=== PATIENT | male | born 1985 | race Caucasian/White ===

== ENCOUNTER 2018-06-20 19:04 | Emergency (ER) | payer MEDICAID ==
[~2018-06-20] VITALS: Ht 182.9 cm; Wt 114.0 kg
[~2018-06-20 19:04] MED LIST: ACET-1757 PO; ACET325T14 PO; ARIP15TA3 PO; ATOR40TA PO; BUSP7.5T3 PO; DIAZ1KIT6 PR; DIVA500T17 PO; DIVA500T4 PO; ESOM20CA PO; HYDR-3237 PO; LAMO1000 PO; LAMO100T PO; LAMO100T5 PO; LAMO200T49 PO; LAMO25TB2 PO; LEVE500T53 PO; LORA-446 PO; MIRT15TA4 PO; MIRT7.5T8 PO; NICO-486 TD; PANT40TA3 PO; PHEN100C PO; PROP80CA39 PO; QUET200T PO; RANI300C PO; RISP1TAB3 PO; SERT50TA PO; ZIPR60CA2 PO; ZONEGRAN PO; ZONI100C2 PO
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
--- NOTE | 2018-06-20 19:18 | NUR ---
LEGAL HOLD DOCUMENT LISTS: "INCREASING RACING THOUGHTS, DELUSIONS AND PARANOIA. uNABLE TO CARE FOR SELF CURRENTLY"
[2018-06-20] MEDS ORDERED: KETOROLAC 30 MG/1 ML IVPush ONE (19:30)
[2018-06-20] MEDS ORDERED: KETOROLAC 30 MG/1 ML ONE (19:53)
[2018-06-20] MEDS ORDERED: LORazepam 2 MG/ML, 1ML ONE (19:54)
[2018-06-20 19:55] LABS: BASOPHILS % (AUTO) 0 % (0-1); EOSINOPHILS # (AUTO) 0.13 x10^3/uL (0-0.4); EOSINOPHILS % (AUTO) 1 % (1-7); LYMPHOCYTES # (AUTO) 1.33 x10^3/uL (1-3.4); LYMPHOCYTES % (AUTO) 12 % (22-44); MD NO; MEAN CORPUSCULAR HEMOGLOBIN 30.1 pg (27.5-34.5); MEAN CORPUSCULAR HGB CONC 34.4 g/dL (33.2-36.2); MEAN CORPUSCULAR VOLUME 87.4 fL (81-97); MEAN PLATELET VOLUME 8.1 fL (7.4-10.4); MONOCYTES # (AUTO) 0.59 x10^3/uL (0.2-0.8); MONOCYTES % (AUTO) 5 % (2-9); NEUTROPHILS # (AUTO) 9.37 x10^3/uL (1.8-6.8); NEUTROPHILS % (AUTO) 82 % (42-75); PLATELET COUNT 262 x10^3/uL (130-400); RED BLOOD COUNT 5.45 x10^6/uL (4.38-5.82); RED CELL DISTRIBUTION WIDTH 13.4 % (9.4-14.8)
[2018-06-20] MEDS ORDERED: LORazepam 2 MG/ML, 1ML IVPush ONE (20:00)
[2018-06-20 20:07] LABS: ALANINE AMINOTRANSFERASE 29 U/L (12-78); ALBUMIN 3.7 g/dL (3.4-5.0); ANION GAP 8 mmol/L (5-15); CHLORIDE 104 mmol/L (98-107)
[2018-06-20 20:10] LABS: ALKALINE PHOSPHATASE 130 U/L (45-117); BILIRUBIN,TOTAL 0.4 mg/dL (0.2-1.0); CREATININE 0.94 mg/dL (0.7-1.3); TOTAL PROTEIN 6.7 g/dL (6.4-8.2)
--- NOTE | 2018-06-20 20:25 | NUR ---
URINE SPECIMEN COLLECTED & SENT TO LAB. PT DOZING IN UPRIGHT RT LAT POSITION - EASILY AWAKENED, STARTLES EASILY. SIDE RAILS UP X 2, CALL LIGHT GIVEN TO SPOUSE (WHO'S BS). [facility], IN ROOM. VO DR DUNN: PT TO BE NPO, FOR NOW
[2018-06-20 20:31] LABS: MICROSCOPIC NOT IND
[2018-06-20 20:34] LABS: CULTURE INDICATED? NO
[2018-06-20] MEDS ORDERED: OMNIPAQUE 350 MG/ML, 100ML BOTTLE ONE (20:41)
[2018-06-20] MEDS ORDERED: CHLO100T6 PO (21:03)
[2018-06-20] MEDS ORDERED: DIPH25CA61 PO (21:03)
[2018-06-20] MEDS ORDERED: LITH300T3 PO (21:03)
[2018-06-20] MEDS ORDERED: OLAN15TA9 PO (21:03)
[2018-06-20] MEDS ORDERED: GABA300C10 PO (21:03)
[2018-06-20] MEDS ORDERED: PROP10TA16 PO (21:03)
[2018-06-20] MEDS ORDERED: BISA10SU2 PR (21:03)
[2018-06-20] MEDS ORDERED: IBUP-1221 PO (21:03)
[2018-06-20] MEDS ORDERED: CLON0.1T22 PO (21:03)
[2018-06-20] MEDS ORDERED: HYDR25CA PO (21:03)
[2018-06-20] MEDS ORDERED: NICO-487 TD (21:03)
[2018-06-20] MEDS ORDERED: CLON1TAB11 PO (21:03)
[2018-06-20] MEDS ORDERED: TRAZ50TA66 PO (21:03)
--- NOTE | 2018-06-20 21:52 | NUR ---
PT TO BE DC'D, NEEDS [facility] TRANSPORT BACK TO FACILITY (PER PIERRE). PT SITTING ON END OF BED, QUIETLY TALKING W/ PIERRE, SPOUSE & BROTHER.
[2018-06-20 21:53] VITALS: BP 129/93
--- NOTE | 2018-06-20 22:01 | NUR ---
DC INSTRUCTIONS DISCUSSED W/ PT, SPOUSE AND PIERRE ([facility]); UNDERSTANDING VERBALIZED. PT & PIERRE AWAITING TRANSPORT BACK TO FACILITY.
--- NOTE | 2018-06-20 22:08 | NUR ---
PT DRESSED, WALKING AROUND IN ED ROOM. SPRITE PROVIDED TO PT.
--- NOTE | 2018-06-20 22:11 | NUR ---
PT REPORT TO LIZZY Mckinley RN. PT CARE TRANSFERRED.
--- NOTE | 2018-06-20 22:29 | NUR ---
REPORT CALLED TO [facility]. REPORT GIVEN TO JOSLYN ROJAS AT [facility]
--- NOTE | 2018-06-20 22:45 | NUR ---
PT ACCEPTED BACK TO [facility] BY DR. RINCON. NURSE TO NURSE COMPLETED. [facility] CALLED AWAITING [facility] ETA
--- NOTE | 2018-06-20 23:42 | NUR ---
MAYLIN tx number: [id number]
--- NOTE | 2018-06-21 00:30 | NUR ---
PT LEFT BY [facility].
== END 2018-06-21 00:43 ==
LOC: ED 19:42
DX: K59.00 Constipation, unspecified (principal); K43.9 Ventral hernia without obstruction or gangrene; F20.9 Schizophrenia, unspecified; I10 Essential (primary) hypertension; E78.00 Pure hypercholesterolemia, unspecified; F31.9 Bipolar disorder, unspecified; G40.909 Epilepsy, unspecified, not intractable, without status epilepticus; K21.9 Gastro-esophageal reflux disease without esophagitis; Z90.49 Acquired absence of other specified parts of digestive tract; Z90.89 Acquired absence of other organs
CPT/HCPCS: 36415; 74177; 80053; 81003; 83690; 85025; 96374; 96375; 99285; J1885; J2060; Q9967

== ENCOUNTER 2018-08-06 15:28 | Emergency (ER) | payer MEDICAID ==
[~2018-08-06] VITALS: Ht 182.9 cm; Wt 114.0 kg
[~2018-08-06 15:28] MED LIST changes: +BISA10SU2 PR; +CHLO100T6 PO; +CLON0.1T22 PO; +CLON1TAB11 PO; +DIPH25CA61 PO; +GABA300C10 PO; +HYDR25CA PO; +IBUP-1221 PO; +LITH300T3 PO; +NICO-487 TD; +OLAN15TA9 PO; +PROP10TA16 PO; +TRAZ50TA66 PO
--- NOTE | 2018-08-06 15:51 | NUR ---
i am assuming care of this pt from luan (willian) at this time. sbar report was exchanged at the bedside.
--- NOTE | 2018-08-06 15:52 | NUR ---
PT ON A LEGAL HOLD BY EMS. BELONGINGS ARE LOCKED, ROOM IS SECURED, AND A SITTER IS AT THE DOOR FOR SAFETY/SECURITY.
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
--- NOTE | 2018-08-06 15:59 | NUR ---
TASK RN: PT REPORTS HE IS HERE BECAUSE HE IS HEARING VOICES AND NEEDS MEDICAL CLEARANCE FOR [facility] WHERE HE HAS A BED. PT DENIES SI/HI AND JUST WANTS TO BE MEDICALLY CLEARED FOR ADMISSION. PT RESTING IN SAFE BED AND IN GOWN ONLY. 1 BAG OF BELONGINGS.
[2018-08-06 16:18] LABS: AMPHETAMINE SCREEN, URINE Negative (Negative); BARBITURATE SCREEN, URINE Negative (Negative); BENZODIAZEPINE SCREEN, URINE Negative (Negative); CANNABINOID SCREEN, URINE Positive (Negative); COCAINE SCREEN, URINE Negative (Negative); METHADONE SCREEN, URINE Negative (Negative); OPIATE SCREEN, URINE Negative (Negative)
[2018-08-06 16:41] LABS: BASOPHILS # (AUTO) 0.09 x10^3/uL (0-0.1); BASOPHILS % (AUTO) 1 % (0-1); EOSINOPHILS # (AUTO) 0.29 x10^3/uL (0-0.4); EOSINOPHILS % (AUTO) 4 % (1-7); LYMPHOCYTES # (AUTO) 2.08 x10^3/uL (1-3.4); LYMPHOCYTES % (AUTO) 25 % (22-44); MD NO; MEAN CORPUSCULAR HEMOGLOBIN 29.6 pg (27.5-34.5); MEAN CORPUSCULAR HGB CONC 33.1 g/dL (33.2-36.2); MEAN CORPUSCULAR VOLUME 89.3 fL (81-97); MEAN PLATELET VOLUME 7.8 fL (7.4-10.4); MONOCYTES # (AUTO) 0.53 x10^3/uL (0.2-0.8); MONOCYTES % (AUTO) 6 % (2-9); NEUTROPHILS # (AUTO) 5.31 x10^3/uL (1.8-6.8); NEUTROPHILS % (AUTO) 64 % (42-75); PLATELET COUNT 286 x10^3/uL (130-400); RED BLOOD COUNT 5.18 x10^6/uL (4.38-5.82)
--- NOTE | 2018-08-06 16:48 | NUR ---
PT IS RESTING COMFORTABLY ON AN E.R. GURNEY WHILE AWAITING THE RESULTS OF DIAGNOSTICS. THERE ARE NO ACUTE CHANGES NTED AT THIS TIME, AND I WILL CONTINUE TO MONITOR AND TREAT ORDERED, WELL PRN.
[2018-08-06 16:52] LABS: ANION GAP 6 mmol/L (5-15); CALCIUM 8.7 mg/dL (8.5-10.1); CHLORIDE 108 mmol/L (98-107)
[2018-08-06 16:56] LABS: ACETAMINOPHEN < 2 mcg/mL (10-30); ALBUMIN 3.8 g/dL (3.4-5.0); CREATININE 0.92 mg/dL (0.7-1.3); SALICYLATE LEVEL 4.1 mg/dL (2.8-20.0)
--- NOTE | 2018-08-06 17:51 | NUR ---
[facility] REQUESTED FOR PT NOURISHMENT AND COMFORT.
--- NOTE | 2018-08-06 18:03 | NUR ---
PT IS SLEEPING SONOROUSLY ON AN E.R. GURNEY WHILE AWAITING A ROOM ASSIGNMENT FOR ADMISSION. VS ARE STABLE, AND THERE ARE NO ACUTE CHANGES NOTED AT THIS TIME. I WILL CONTINUE TO MONITOR AND TREAT ORDERED, WELL PRN WHILE AWAITING A ROOM ASSIGNMENT FOR ADMISSION.
--- NOTE | 2018-08-06 18:57 | NUR ---
ESTHER (RN) IS ASSUMING CARE OF THIS PT AT THIS TIME. SBAR REPORT WAS EXCHANGED AT THE BEDSIDE.
--- NOTE | 2018-08-06 19:00 | NUR ---
REPORT RECIEVED FROM CARLY, ASSUMED CARE OF PT. GASOLINE TRUCK CRANE OPERATOR AT , NO DISTRESS NOTED
--- NOTE | 2018-08-06 20:15 | NUR ---
PT AGITATED, WANTING EVENING MEDS, CRYSTAL JARQUIN, DEFUSED SITUATION
--- NOTE | 2018-08-06 21:16 | NUR ---
PT RESTING QUIETLY, NO DISTRESS NOTED
[2018-08-06] MEDS ORDERED: CHLORPROMAZINE 100MG TAB ONE (21:25)
[2018-08-06] MEDS ORDERED: DIPHENHYDRAMINE 50 MG CAPSULE ONE (21:25)
[2018-08-06] MEDS ORDERED: MIRTAZAPINE 15 MG TABLET ONE (21:25)
[2018-08-06] MEDS ORDERED: TRAZODONE 50MG TABLET PO PRN (21:30)
[2018-08-06] MEDS ORDERED: LITHIUM CARBONATE 300 MG CAPSULE PO SCH (21:30)
[2018-08-06] MEDS ORDERED: PROPRANOLOL 10 MG TABLET PO SCH (21:30)
[2018-08-06] MEDS ORDERED: TEMPLATE NON-FORMULARY MED. (Gabapentin** 300 MG) PO SCH (21:30)
[2018-08-06] MEDS ORDERED: CHLORPROMAZINE 100MG TAB PO SCH (21:30)
[2018-08-06] MEDS ORDERED: TEMPLATE NON-FORMULARY MED. (Clonazepam** 2 MG) PO SCH (21:30)
[2018-08-06] MEDS ORDERED: OLANZAPINE 15 MG PO SCH (21:30)
[2018-08-06] MEDS ORDERED: ACETAMINOPHEN 325 MG TABLET PO PRN (21:30)
[2018-08-06] MEDS ORDERED: MIRTAZAPINE 15 MG TABLET PO SCH (21:30)
[2018-08-06] MEDS ORDERED: IBUPROFEN 200 MG TABLET PO PRN (21:30)
[2018-08-06] MEDS ORDERED: ONDANSETRON ODT 4 MG PO PRN (21:30)
[2018-08-06] MEDS ORDERED: DIPHENHYDRAMINE 25 MG CAPSULE PO SCH (21:30)
[2018-08-06] MEDS ORDERED: HYDROXYZINE PAMOATE 25MG CAP PO PRN (21:30)
[2018-08-06] MEDS ORDERED: POLYETHYLENE GLYCOL 17 GM PACKET PO PRN (21:30)
[2018-08-06] MEDS ORDERED: OLANZAPINE 5 MG TABLET ONE (21:53)
[2018-08-06] MEDS ORDERED: GABAPENTIN 300 MG CAPSULE ONE (21:53)
--- NOTE | 2018-08-06 23:44 | NUR ---
PT RESTING WITH EYES CLOSED, NO DISTRESS NOTED, CALL LIGHT IN REACH, SITTER OUTSIDE DOOR
--- NOTE | 2018-08-07 00:26 | NUR ---
PT RESTING WITH EYES CLOSED, NO DISTRESS NOTED, CALL LIGHT IN REACH, SITTER [employer] DOOR
--- NOTE | 2018-08-07 02:41 | NUR ---
RESTING QUIETY WITH EYES CLOSED, NO DISTRESS NOTED, SITTER OUTSIDE DOOR
--- NOTE | 2018-08-07 03:05 | NUR ---
REPORT GIVEN TO ANNETTE AT [facility]
[2018-08-07] MEDS ORDERED: BISACODYL 10 MG SUPP PR PRN (03:30)
[2018-08-07] MEDS ORDERED: GABAPENTIN 300 MG CAPSULE PO SCH (04:18)
[2018-08-07] MEDS ORDERED: DIPHENHYDRAMINE 50 MG CAPSULE PO SCH (05:09)
[2018-08-07] MEDS ORDERED: OLANZAPINE 5 MG TABLET PO SCH (05:10)
--- NOTE | 2018-08-07 05:11 | NUR ---
PT RESTING QUIETLY WITH EYE CLOSED, NO DISTRESS NOTED, SITTER OUTSIDE DOOR
--- NOTE | 2018-08-07 06:05 | NUR ---
PT RESTING WITH EYES CLOSED, NO DISTRESS NOTED, SITTER OUTSIDE DOOR
--- NOTE | 2018-08-07 06:56 | NUR ---
received report from Jeff. pt upright on lorena awake & comfortable, responds approp to staff, NAD, comfort measures provided, call light within reach. Addendum: 08/07/18 at 0658 by DAYANNA received report from Jeff. pt laying on lorena with eyes closed, NAD with equal chest rise/fall, no needs at this time, pt remains in safe environment, sitter in view.
[2018-08-07 07:35] VITALS: BP 143/93
--- NOTE | 2018-08-07 07:37 | NUR ---
pt changed into DC gown with blanket for transfer to [facility], ambulated steadily to for BM, back to [facility], responds approp to staff, NAD, comfort measures provided, pt remains in safe environment while awaiting [facility], sitter in full view.
--- NOTE | 2018-08-07 07:41 | NUR ---
Patient & [facility] given discharge instructions and they have confirmed that they understand the instructions. Patient ambulatory with steady gait.
[2018-08-07] MEDS ORDERED: NICOTINE 21 MG/24 HR PATCH.TD24 TD SCH (09:00)
== END 2018-08-07 07:42 ==
LOC: ED 17:38 → EDIP 20:15 → UNDOADMOB 20:15 → ED 08-07 07:42
DX: R45.851 Suicidal ideations (principal); E78.5 Hyperlipidemia, unspecified; K21.9 Gastro-esophageal reflux disease without esophagitis; I10 Essential (primary) hypertension; F41.9 Anxiety disorder, unspecified; F17.200 Nicotine dependence, unspecified, uncomplicated; F20.9 Schizophrenia, unspecified
CPT/HCPCS: 36415; 80048; 80307; 80329; 82040; 85025; 99285; Q0163; G0480